=== PATIENT | female | born 1960 | race Caucasian/White ===

== ENCOUNTER 2017-06-23 12:37 | Emergency (ER) | payer OTHER ==
[2017-06-23 12:44] VITALS: BP 143/81
[2017-06-23 13:29] LABS: BILIRUBIN,URINE NEGATIVE (NEGATIVE)
[2017-06-23 13:33] LABS: UA w/ MICROSCOPIC CHARGE YES
[2017-06-23 13:51] LABS: WBC,URINE 0-3 /HPF (0-5)
--- NOTE | 2017-06-23 14:54 | ED Physician Documentation ---
PD HPI FEMALE - Stated complaint Stated Complaint: FEMALE - Chief complaint Chief Complaint: General - History obtained from History obtained from: Patient - History of Present Illness Timing - onset: How many days ago (2-3) Timing - duration: Days Timing - details: Gradual onset, Waxing and waning Associated symptoms: Dysuria, Urinary frequency, Hematuria. No: Vaginal discharge, Genital sore/lesion Similar symptoms before: Has not had sx before Recently seen: Not recently seen Review of Systems Constitutional: denies: Fever, Chills Throat: denies: Sore throat Respiratory: denies: Cough GI: denies: Abdominal Pain, Nausea, Vomiting, Diarrhea : reports: Dysuria, Frequency, Hematuria. denies: Discharge Skin: denies: Rash, Lesions PD PAST MEDICAL HISTORY - Past Medical History Past Medical History: No - Past Surgical History Past Surgical History: Yes General: Cholecystectomy - Present Medications Home Medications: Ambulatory Orders Medication Instructions Recorded Confirmed Phenazopyridine [Pyridium] 200 mg PO TID PRN #15 tablet 06/23/17 Sulfamethox/Trimeth 800/160 1 each PO BID #14 tablet 06/23/17 [Bactrim Ds 800/160] - Allergies Allergies/Adverse Reactions: Allergies Allergy/AdvReac Type Severity Reaction Status Date / Time No Known Drug Allergies Allergy Verified 06/23/17 12:44 - Social History Does the pt smoke?: No Smoking Status: Never smoker Does the pt drink ETOH?: No Does the pt have substance abuse?: No - Immunizations Immunizations are current?: No - POLST Patient has POLST: No PD ED PE NORMAL - Vitals Vital signs reviewed: Yes - General General: Alert and oriented X 3, No acute distress, Well developed/nourished - HEENT HEENT: Pharynx benign - Neck Neck: Supple, no meningeal sign, No adenopathy - Cardiac Cardiac: RRR, No murmur - Respiratory Respiratory: Clear bilaterally - Abdomen Abdomen: Soft, Non tender - Female Female : Deferred - Rectal Rectal: Deferred - Back Back: No CVA TTP - Derm Derm: Normal color, Warm and dry Results - Vitals Vitals: Oxygen O2 Source Room air - Labs Labs: Laboratory Tests 06/23/17 12:50 Urine Color BROWN Urine Clarity CLOUDY Urine pH 6.0 Ur Specific [place] >=1.030 H Urine Protein 30 H Urine Glucose (UA) NEGATIVE Urine Ketones NEGATIVE Urine Occult Blood LARGE H Urine Nitrite NEGATIVE Urine Bilirubin NEGATIVE Urine Urobilinogen 0.2 (NORMAL) Ur Leukocyte Esterase NEGATIVE Urine RBC TNTC H Urine WBC 0-3 Ur Squamous Epith Cells FEW Squamous Urine Crystals 0-2 Calcium Oxalate Urine Bacteria Moderate H Urine Casts 3-5 Hyaline Casts Urine Mucus Few Strands Urine Yeast PRESENT Ur Microscopic Review INDICATED PD MEDICAL DECISION MAKING - ED course Complexity details: reviewed results, considered differential, d/w patient Departure - Departure Disposition: Home, Self Care Clinical Impression: Cystitis Condition: Stable Record reviewed to determine appropriate education?: Yes Instructions: ED UTI Cystitis Female Prescriptions: Sulfamethox/Trimeth 800/160 [Bactrim Ds 800/160] 1 each PO BID #14 tablet Phenazopyridine [Pyridium] 200 mg PO TID PRN #15 tablet PRN Reason: Pain Comments: This sounds like a bladder infection. Recheck if not improved over the next few days. Return sooner if worsening. Phenazopyridine as needed for discomfort of urination. He can also use Tylenol or ibuprofen for pain. Bactrim twice daily for a week for the infection. Discharge Date/Time: 06/23/17 15:13
[2017-06-23] MEDS ORDERED: PHENAZOPYRIDINE 100 MG TABLET PO STA (15:01)
[2017-06-23] MEDS ORDERED: SULFAMETH/TRIMETH DS 800/160 MG TABLET PO STA (15:01)
[2017-06-23] MEDS ORDERED: PHENAZOPYRIDINE 100 MG TABLET PO ONE (15:13)
[2017-06-23] MEDS ORDERED: SULFAMETH/TRIMETH DS 800/160 MG TABLET PO ONE (15:13)
== END 2017-06-23 15:13 | disposition home or self-care (01) ==
LOC: ED 12:37
DX: N30.91 Cystitis, unspecified with hematuria (principal)
CPT/HCPCS: 81001; 99283; A9270; 81003

== ENCOUNTER 2017-07-08 08:45 | Emergency (ER) | payer OTHER ==
[2017-07-08] MEDS ORDERED: SODIUM CHLORIDE FLUSH 0.9% 10 ML SYRINGE IVP ONE ×2 (08:59→10:48)
[2017-07-08] MEDS ORDERED: ONDANSETRON 4 MG/2 ML VIAL IVP STA ×2 (09:09→09:43)
[2017-07-08] MEDS ORDERED: SODIUM CHLORIDE 0.9% 1,000 ML IV ONE (09:09)
[2017-07-08] MEDS ORDERED: KETOROLAC 60 MG/2 ML VIAL IVP STA (09:09)
--- NOTE | 2017-07-08 09:11 | ED Physician Documentation ---
PD HPI ABD PAIN - Stated complaint Stated Complaint: BACK PX - Chief complaint Chief Complaint: Abd Pain - History obtained from History obtained from: Patient, Family - History of Present Illness Timing - onset: Enter time (0700), Today Timing - duration: Hours Timing - details: Abrupt onset, Still present Quality: Sharp, Pain Location: LUQ Radiation: Left flank Improved by: Other (nothing) Worsened by: Other (nothing) Associated symptoms: Nausea, Hematuria Similar symptoms before: Has not had sx before Recently seen: Emergency Dept - Additional information Additional information: 57-year-old female seen in the emergency department 2 weeks ago for what appeared to be a bladder infection with blood in the urine appeared to improve with use of sulfamethoxazole trimethoprim. This morning she awoke with sudden onset of left flank pain that is severe. She is able to move about without increasing the pain she is not able to get into a comfortable position and she has not had fever or vomiting. She does have some nausea. Review of Systems Constitutional: denies: Fever, Chills Eyes: denies: Decreased vision Ears: denies: Ear pain Nose: denies: Congestion Throat: denies: Sore throat Cardiac: denies: Chest pain / pressure Respiratory: denies: Dyspnea, Cough GI: reports: Abdominal Pain, Nausea. denies: Vomiting : reports: Hematuria. denies: Dysuria, Frequency Skin: denies: Rash Musculoskeletal: reports: Back pain. denies: Neck pain PD PAST MEDICAL HISTORY - Past Medical History Past Medical History: Yes : Kidney stones - Past Surgical History Past Surgical History: Yes General: Cholecystectomy - Present Medications Home Medications: Ambulatory Orders Medication Instructions Recorded Confirmed HYDROcod/ACETAM 5/325 [[place] 5/325] 1 - 2 ea PO Q6H PRN #15 tablet 07/08/17 Ondansetron Odt [Zofran] 4 mg TL Q6H PRN #10 tablet 07/08/17 - Allergies Allergies/Adverse Reactions: Allergies Allergy/AdvReac Type Severity Reaction Status Date / Time No Known Drug Allergies Allergy Verified 06/23/17 12:44 - Social History Does the pt smoke?: No Smoking Status: Never smoker Does the pt drink ETOH?: No Does the pt have substance abuse?: No - Immunizations Immunizations are current?: No - POLST Patient has POLST: No PD ED PE NORMAL - Vitals Vital signs reviewed: Yes (hypertensive ) - General General: Alert and oriented X 3, Well developed/nourished, Other (The patient is grunting in pain periodically and appears uncomfortableShe is frequently shifting position.) - HEENT HEENT: Atraumatic, PERRL - Neck Neck: Supple, no meningeal sign - Cardiac Cardiac: RRR, No murmur - Respiratory Respiratory: No respiratory distress, Clear bilaterally - Abdomen Abdomen: Soft, Non tender - Back Back: No CVA TTP, No spinal TTP - Derm Derm: Normal color, Warm and dry, No rash - Extremities Extremities: No deformity, No edema - Neuro Neuro: No motor deficit, No sensory deficit - Psych Psych: Normal mood, Normal affect Results - Vitals Vitals: Vital Signs - 24 hr 07/08/17 07/08/17 08:51 10:35 Temperature 36.7 C 36.3 C L Heart Rate 69 68 Respiratory 18 16 Rate Blood Pressure 131/93 H 122/51 L O2 Saturation 100 97 Oxygen O2 Source Room air - Labs Labs: Laboratory Tests 07/08/17 07/08/17 07/08/17 09:04 09:04 09:04 WBC 7.5 RBC 4.83 Hgb 14.9 Hct 44.7 MCV 92.7 MCH 30.8 MCHC 33.3 RDW 13.3 Plt Count 306 MPV 7.7 L Neut # 5.2 Lymph # 1.7 [place] # 0.3 Eos # 0.1 Baso # 0.1 Absolute Nucleated RBC 0.00 Nucleated RBC % 0.1 Sodium 140 Potassium 3.7 Chloride 105 Carbon Dioxide 25 Anion Gap 10.0 BUN 15 Creatinine 0.8 Estimated GFR (MDRD) 73 L Glucose 109 H Calcium 9.3 Total Bilirubin 0.8 AST 22 ALT 19 Alkaline Phosphatase 76 Total Protein 7.4 Albumin 4.4 Globulin 3.0 Albumin/Globulin Ratio 1.5 Lipase 21 L Urine Color YELLOW Urine Clarity SL. CLOUDY Urine pH 5.5 Ur Specific [place] >=1.030 H Urine Protein NEGATIVE Urine Glucose (UA) NEGATIVE Urine Ketones NEGATIVE Urine Occult Blood LARGE H Urine Nitrite NEGATIVE Urine Bilirubin NEGATIVE Urine Urobilinogen 0.2 (NORMAL) Ur Leukocyte Esterase SMALL H Urine RBC 0-5 Urine WBC 4-5 Ur Squamous Epith Cells FEW Squamous Urine Crystals 11-25 Ca Oxalate Urine Bacteria Few Urine Mucus Marked Strands Ur Microscopic Review INDICATED Urine Culture Comments INDICATED - Rads (name of study) CT abdomen pelvis without Radiology: Prelim report reviewed (Impression: 1. Moderate left hydronephrosis and hydroureter secondary to an obstructing 5 mm ureterovesicular junction calculus. No other urinary tract calculi bilaterally. 2. Chronic and incidental findings as above, not significantly changed from prior.), EMP read indepedently, See rad report Procedures - Bedside sono Bedside sono by EMP: With use of bedside ultrasound the left kidney is imaged and there is evidence of hydronephrosis. The kidney is sonographically nontender. PD MEDICAL DECISION MAKING - ED course Complexity details: reviewed old records, reviewed results, re-evaluated patient , considered differential, d/w patient, d/w family ED course: 57-year-old female with severe left flank pain has ureteral lithiasis on the left at the ureterovesicular junction. Here in the emergency department she is treated with intravenous Toradol and Dilaudid. She does have some pain control with this. She is given fluid and we expect the stone to pass. Departure - Departure Disposition: 01 Home, Self Care Clinical Impression: Ureterolithiasis Condition: Stable Instructions: ED Stone Renal W Colic [facility] Prescriptions: HYDROcod/ACETAM 5/325 [[place] 5/325] 1 - 2 ea PO Q6H PRN #15 tablet PRN Reason: Pain Ondansetron Odt [Zofran] 4 mg TL Q6H PRN #10 tablet PRN Reason: Nausea / Vomiting Comments: Today in the Emergency Department your blood pressure was elevated. This can happen from the stress of the visit itself, from a current illness or circumstance or from uncontrolled hypertension. If you take blood pressure medications take your usual mediations, have your blood pressure re-checked in an appropriate setting and follow up any elevation with your primary care doctor.
[2017-07-08] MEDS ORDERED: KETOROLAC 60 MG/2 ML VIAL ONE (09:15)
[2017-07-08] MEDS ORDERED: ONDANSETRON 4 MG/2 ML VIAL ONE ×2 (09:16→09:49)
[2017-07-08 09:17] LABS: BASOPHILS # (AUTO) 0.1 10^3/uL (0.0-0.1); EOSINOPHILS # (AUTO) 0.1 10^3/uL (0.0-0.7); HCT - HEMATOCRIT 44.7 % (37.0-47.0); HGB - HEMOGLOBIN 14.9 g/dL (12.0-16.0); LYMPHOCYTES # (AUTO) 1.7 10^3/uL (1.5-3.5); LYMPHOCYTES % (AUTO) 23.1 %; MEAN CORPUSCULAR HEMOGLOBIN 30.8 pg (27.0-31.0); MEAN CORPUSCULAR HGB CONC 33.3 g/dL (32.0-36.0); MEAN CORPUSCULAR VOLUME 92.7 fL (81.0-99.0); MEAN PLATELET VOLUME 7.7 fL (7.9-10.8); MONOCYTES # (AUTO) 0.3 10^3/uL (0.0-1.0); MONOCYTES % (AUTO) 4.6 %; NEUTROPHILS # (AUTO) 5.2 10^3/uL (1.5-6.6); NEUTROPHILS % (AUTO) 69.3 %; NUCLEATED RED BLOOD CELLS AUTO 0.1 /100WBC; RED BLOOD COUNT 4.83 10^6/uL (4.20-5.40); RED CELL DISTRIBUTION WIDTH 13.3 % (12.0-15.0); UNCORRECTED WHITE BLOOD COUNT 7.5 x10^3/uL; WHITE BLOOD COUNT 7.5 x10^3/uL (4.8-10.8)
[2017-07-08 09:30] LABS: ALBUMIN/GLOBULIN RATIO 1.5 (1.0-2.2); BILIRUBIN,TOTAL 0.8 mg/dL (0.2-1.0); CALCIUM 9.3 mg/dL (8.5-10.3); CREATININE 0.8 mg/dL (0.4-1.0); POTASSIUM 3.7 mmol/L (3.5-5.0); TOTAL PROTEIN 7.4 g/dL (6.7-8.2)
[2017-07-08] MEDS ORDERED: HYDROmorphone 1 MG/ML CARPUJECT IVP STA ×2 (09:43→10:42)
[2017-07-08] MEDS ORDERED: HYDROmorphone 1 MG/ML CARPUJECT ONE ×2 (09:49→10:47)
[2017-07-08 10:07] LABS: BILIRUBIN,URINE NEGATIVE (NEGATIVE); PH,URINE 5.5 PH (5.0-7.5)
--- NOTE | 2017-07-08 10:10 | CT Preliminary Report ---
Exam: CT Abdomen/Pelvis W/O IMPRESSION: 1. Moderate left hydronephrosis and hydroureter secondary to an obstructing 5 mm ureterovesicular jim ction calculus. No other urinary tract calculi bilaterally. 2. Chronic and incidental findings as above, not significantly changed from prior. [facility] SITE ID: [id number]
[2017-07-08 10:11] LABS: UA w/ MICROSCOPIC CHARGE YES
--- NOTE | 2017-07-08 10:12 | CT Report ---
EXAM: CT ABDOMEN AND PELVIS (CT KUB) EXAM DATE: 07/08/2017 09:37 AM. CLINICAL HISTORY: Left flank pain . COMPARISONS: 02/19/2016. TECHNIQUE: Routine axial helical CT imaging was performed through the abdomen and pelvis without IV c ontrast. Reconstructions: Coronal and sagittal. In accordance with CT protocol optimization, one or more of the following dose reduction techniques w ere utilized for this exam: automated exposure control, adjustment of mA and/or KV based on patient s ize, or use of iterative reconstructive technique. FINDINGS: Lung Bases: No significant abnormality. Right Kidney/Ureter: No stones, hydronephrosis, or hydroureter. No perinephric fat stranding. At leas t three 1-2 cm simple cysts in the inferior pole are similar to prior. Left Kidney/Ureter: Moderate hydronephrosis and hydroureter secondary to an obstructing 5 mm calculus at the ureterovesicular junction. Mild perinephric and periureteric stranding. No other urinary trac t calculi. Other Solid Organs: 11 mm cyst in the posterior right hepatic lobe is similar to prior. Additional hy podense foci in the liver are too small to characterize but are also similar to prior. Noncontrast im ages of the spleen, pancreas, and bilateral adrenal glands demonstrate no significant abnormality. Gallbladder/Bile Ducts: The gallbladder is surgically absent. Normal postcholecystectomy biliary tree . Peritoneal Cavity: No bowel obstruction or abnormal stool burden. Minimal diverticulosis without francesco cent inflammatory change. Normal appendix. No ascites or pneumoperitoneum. No focal inflammatory fat stranding. No gross lymphadenopathy demonstrated on this noncontrast study. Pelvic Organs: The urinary bladder is completely decompressed but demonstrates no significant abnorma lity. The visualized pelvic organs are within normal limits. Vasculature: Minimal aortic atherosclerosis. No aneurysm. Other: The visualized osseous structures demonstrate no significant abnormality. IMPRESSION: 1. Moderate left hydronephrosis and hydroureter secondary to an obstructing 5 mm ureterovesicular jim ction calculus. No other urinary tract calculi bilaterally. 2. Chronic and incidental findings as above, not significant changed from prior. [facility] Referring Provider Line: [phone] SITE ID: [id number]
[2017-07-08 10:21] LABS: UR CULTURE IF IND INDICATED
[2017-07-08 11:10] VITALS: BP 125/64
== END 2017-07-08 11:05 | disposition home or self-care (01) ==
LOC: ED 08:45
DX: N20.1 Calculus of ureter (principal); R03.0 Elevated blood-pressure reading, without diagnosis of hypertension
CPT/HCPCS: 36415; 74176; 80053; 81001; 83690; 85025; 87086; 96361; 96374; 96375; 96376; 99283; 99284; J1170; 81003

== ENCOUNTER 2017-07-10 13:43 | Emergency (ER) | payer OTHER ==
[2017-07-10] MEDS: HYDROmorphone 1 MG/ML CARPUJECT IVP STA (14:51)
[2017-07-10] MEDS: KETOROLAC 60 MG/2 ML VIAL IVP STA (14:51)
[2017-07-10] MEDS: SODIUM CHLORIDE 0.9% 1,000 ML IV ONE (14:55)
[2017-07-10 15:04] LABS: CREATININE 0.9 mg/dL (0.4-1.0)
[2017-07-10 15:20] LABS: PH,URINE 5.5 PH (5.0-7.5)
[2017-07-10 15:23] LABS: BILIRUBIN,URINE NEGATIVE (NEGATIVE); UA w/ MICROSCOPIC CHARGE YES
[2017-07-10 15:36] LABS: UR CULTURE IF IND INDICATED
[2017-07-10] MEDS ORDERED: FAMOTIDINE 20 MG/50 ML 0 ML IV ONE (15:47)
[2017-07-10] MEDS ORDERED: TAMSULOSIN 0.4 MG CAPSULE ONE (15:47)
[2017-07-10] MEDS: TAMSULOSIN 0.4 MG CAPSULE PO STA (15:48)
[2017-07-10] MEDS: LIDOCAINE VISCOUS 2% 15 ML UDC MM STA (15:48)
[2017-07-10] MEDS ORDERED: MAG HYDROX/AL HYDROX/SIMETH 30 ML UDC ONE (15:48)
[2017-07-10] MEDS ORDERED: LIDOCAINE VISCOUS 2% 15 ML UDC MM ONE (15:48)
[2017-07-10] MEDS: MAG HYDROX/AL HYDROX/SIMETH 30 ML UDC PO STA (15:48)
[2017-07-10] MEDS: FAMOTIDINE 20 MG/50 ML 50 ML IV ONE (16:03)
--- NOTE | 2017-07-10 16:10 | XRAY Preliminary Report ---
Exam: XR Abdomen 1 View IMPRESSION: Persistent small stone left ureter vesicle junction. [facility] SITE ID: [id number]
--- NOTE | 2017-07-10 16:21 | XRAY Report ---
EXAM: ABDOMEN RADIOGRAPHY EXAM DATE: 07/10/2017 04:03 PM. CLINICAL HISTORY: Increasing left flank pain. COMPARISON: CT abdomen and pelvis 07/08/2017. TECHNIQUE: 2 images, one view. FINDINGS: Bowel Gas Pattern: Within normal limits. No dilated loops. Other: Stable cluster of small calcifications left lower pelvis. 2 x 4 mm stone appears to remain in the area of the left ureterovesicle junction. Cholecystectomy. IMPRESSION: Persistent small stone left ureterovesicle junction. [facility] Referring Provider Line: [phone] SITE ID: [id number]
[2017-07-10 16:50] VITALS: BP 118/59
--- NOTE | 2017-07-10 17:23 | ED Physician Documentation ---
History of Present Illness - Stated complaint Stated Complaint: LEFT SIDE PX - Chief complaint Chief Complaint: Abd Pain - Additonal information Additional information: hx from pt 57 f approx a month of int L flank pain seen by PMD txed for UTI with bactrim then seen in ED for inc pain [address] showed approx 5 mm UVJ stone dc on vicodin pain intol no fever or vomit Review of Systems Constitutional: denies: Fever Cardiac: denies: Chest pain / pressure Respiratory: denies: Dyspnea GI: denies: Abdominal Pain, Nausea, Vomiting : reports: Hematuria Musculoskeletal: reports: Back pain Endocrine: denies: Easy bruising / bleeding Immunocompromised: denies: Immunocompromised PD PAST MEDICAL HISTORY - Past Medical History Past Medical History: Yes : Kidney stones - Past Surgical History Past Surgical History: Yes General: Cholecystectomy - Present Medications Home Medications: Ambulatory Orders Medication Instructions Recorded Confirmed HYDROcod/ACETAM 5/325 [[place] 5/325] 1 - 2 ea PO Q6H PRN #15 tablet 07/08/17 Ondansetron Odt [Zofran] 4 mg TL Q6H PRN #10 tablet 07/08/17 Oxycodone HCl/Acetaminophen 1 each PO Q6HR PRN #15 tablet 07/10/17 [Percocet 5-325 mg Tablet] Tamsulosin [Flomax] 0.4 mg PO DAILY #7 capsule 07/10/17 - Allergies Allergies/Adverse Reactions: Allergies Allergy/AdvReac Type Severity Reaction Status Date / Time No Known Drug Allergies Allergy Verified 06/23/17 12:44 - Social History Does the pt smoke?: No Smoking Status: Never smoker Does the pt drink ETOH?: No Does the pt have substance abuse?: No - Immunizations Immunizations are current?: Yes - POLST Patient has POLST: No PD ED PE NORMAL - Vitals Vital signs reviewed: Yes - HEENT HEENT: Other (curled up in pain) - Cardiac Cardiac: RRR - Respiratory Respiratory: No respiratory distress, Clear bilaterally - Abdomen Abdomen: Soft, Non tender - Back Back: No CVA TTP (does not affect pain) - Derm Derm: Normal color Results - Vitals Vitals: Vital Signs - 24 hr 07/10/17 07/10/17 07/10/17 13:54 15:27 16:50 Temperature 36 C L 36.2 C L 36.9 C Heart Rate 65 59 L 81 Respiratory 20 18 16 Rate Blood Pressure 130/50 L 130/59 L 118/59 L O2 Saturation 96 97 95 07/10/17 17:18 Temperature 36.5 C Heart Rate 72 Respiratory 15 Rate Blood Pressure 118/59 L O2 Saturation 97 Oxygen O2 Source Room air - Labs Labs: Laboratory Tests 07/10/17 07/10/17 14:48 15:15 Creatinine 0.9 Estimated GFR (MDRD) 64 L Urine Color YELLOW Urine Clarity SL. CLOUDY Urine pH 5.5 Ur Specific [place] >=1.030 H Urine Protein TRACE Urine Glucose (UA) NEGATIVE Urine Ketones 15 H Urine Occult Blood LARGE H Urine Nitrite NEGATIVE Urine Bilirubin NEGATIVE Urine Urobilinogen 0.2 (NORMAL) Ur Leukocyte Esterase TRACE H Urine RBC 11-25 H Urine WBC 4-5 Ur Squamous Epith Cells RARE Squamous Urine Crystals 0-2 Calcium Oxalate Urine Bacteria Few Urine Mucus Marked Strands Ur Microscopic Review INDICATED Urine Culture Comments INDICATED - Rads (name of study) KUB Radiology: See rad report (persistent stone L UVJ) PD MEDICAL DECISION MAKING - ED course ED course: pain controlled with IV toradol and dilaudid after IV toradol pt developed burnign epigastric pain, I evaluated her, abd soft non tender, no peritoneal signs, sx better after pepcid and GI cocktail UA no infection so approx 5 mm UVJ stone, poor control of pain with home meds but controlled in the ER, no infection d/w urology at [facility] and they will see pt as an oupt - gave pt CD of her CT and also asked rads to forward prior visit CT and today KUB to [facility] will change vicodin to percocet and add flomax, seems pt does not tolerate NSAIDs well unfortunately Departure - Departure Disposition: Home, Self Care Clinical Impression: Renal colic on left side Condition: Good Instructions: ED Stone Renal W Colic Follow-Up: [facility] [Provider Group] Prescriptions: Oxycodone HCl/Acetaminophen [Percocet 5-325 mg Tablet] 1 each PO Q6HR PRN #15 tablet PRN Reason: Severe Pain Tamsulosin [Flomax] 0.4 mg PO DAILY #7 capsule Comments: Your stone has not moved - I am not sure if you will be able to pass it. I spoke to urology at [facility] and they will see you as an outpatient - they will call you tomorrow Try the percocet instead of vicodin and also add flomax to relax your ureter and help the stone pass. Drink plenty of fluids Forms: Activity restrictions
[2017-07-10] MEDS: oxyCOD/ACETAMIN 5 MG/325 MG TABLET PO STA (18:05)
[2017-07-10] MEDS ORDERED: oxyCOD/ACETAMIN 5 MG/325 MG TABLET PO ONE (18:08)
== END 2017-07-10 18:15 | disposition home or self-care (01) ==
LOC: ED 13:43
DX: N20.1 Calculus of ureter (principal)
CPT/HCPCS: 36415; 74000; 81001; 81003; 82565; 87086; 96361; 96374; 96375; 99284